=== PATIENT | female | born 1955 | race African-American/Black ===

== ENCOUNTER 2017-01-25 05:34 | Emergency (ER) | payer MEDICARE, OTHER ==
[~2017-01-25] VITALS: Ht 160 cm; Wt 86.8 kg
[~2017-01-25 05:34] MED LIST: CHL25 PO
[2017-01-25] MEDS ORDERED: SIMV-260 PO (06:01)
[2017-01-25 06:28] VITALS: BP 124/80
== END 2017-01-25 07:09 | disposition home or self-care (01) ==
LOC: EMS 05:35
DX: M25.511 Pain in right shoulder (principal); M25.512 Pain in left shoulder; M54.2 Cervicalgia; G89.29 Other chronic pain; I10 Essential (primary) hypertension; Z91.011 Allergy to milk products
CPT/HCPCS: 99283

== ENCOUNTER 2018-04-28 05:23 | Emergency (ER) | payer OTHER ==
[~2018-04-28] VITALS: Ht 160 cm; Wt 87.3 kg
[~2018-04-28 05:23] MED LIST changes: +SIMV-260 PO
[2018-04-28] MEDS ORDERED: OMEP20 PO (05:39)
[2018-04-28] MEDS ORDERED: SIMV-261 PO (05:39)
[2018-04-28] MEDS ORDERED: ERGO500014 PO (05:39)
[2018-04-28 06:11] VITALS: BP 142/91
== END 2018-04-28 07:15 | disposition home or self-care (01) ==
LOC: EMS 05:24
DX: J40 Bronchitis, not specified as acute or chronic (principal); I10 Essential (primary) hypertension; K21.9 Gastro-esophageal reflux disease without esophagitis; J02.9 Acute pharyngitis, unspecified; G89.29 Other chronic pain; Z91.011 Allergy to milk products
CPT/HCPCS: 99283

== ENCOUNTER 2025-08-04 19:42 | Inpatient (IN) | payer OTHER, MEDICARE ==
[~2025-08-04] VITALS: Ht 160 cm; Wt 56.4 kg
[~2025-08-04 19:42] MED LIST changes: +ERGO500014 PO; +OMEP-148 PO; -SIMV-260 PO; +SIMV-261 PO
[2025-08-04 19:43] VITALS: PULSE 160; RESP 20; O2SAT 100
[2025-08-04] MEDS ORDERED: OMEP40CA21 PO (19:52)
[2025-08-04] MEDS ORDERED: LOSA100T59 PO (19:52)
[2025-08-04] MEDS ORDERED: MAGN400T25 PO (19:52)
[2025-08-04] MEDS ORDERED: NPH,100V SQ (19:52)
[2025-08-04] MEDS ORDERED: HYDR25TA2 PO (19:52)
[2025-08-04] MEDS ORDERED: 0.9% SODIUM CHLORIDE 10 ML SYRINGE IVP PRN (20:00)
[2025-08-04 20:06] LABS: PLATELET COUNT (AUTO) 194 K/uL (150-450); RED BLOOD CELL COUNT(AUTO) 3.09 MIL/uL (4.00-5.20); RED CELL DISTRIBUTION WIDTH 20.8 % (11.5-14.5); WHITE BLOOD COUNT (AUTO) 4.2 K/uL (4.5-11.0)
[2025-08-04 20:09] LABS: CALCIUM, TOTAL 9.4 mg/dL (8.8-10.5); CREATININE 1.77 mg/dL (0.60-1.30); GLOMERULAR FILTR. RATE CALC 35 mL/min (>60); SODIUM SERUM 146 mmol/L (136-145); UREA NITROGEN, BLOOD 30 mg/dL (7-18)
[2025-08-04 20:20] LABS: CREATINE KINASE, TOTAL ONLY 183 U/L (26-192); TOTAL PROTEIN, SERUM 5.3 g/dL (6.4-8.2); TROPONIN I-HIGH SENSITIVITY 18 ng/L (<51)
[2025-08-04 20:21] LABS: ASPARTATE AMINOTRANSFERASE 1519 U/L (15-37)
[2025-08-04 20:23] LABS: ABG BASE EXCESS -29.8 mmol/L (-2.0-3.0); ABG CARBOXYHEMOGLOBIN 1.1 % (0.5-1.5); ABG HCO3 4.0 mmol/L (21.0-28.0); ABG METHEMOGLOBIN 1.8 % (0.0-1.5); ABG OXYGEN CONTENT 11.0 mL/dL (15.0-23.0); ABG OXYGEN SATURATION 99.7 % (94.0-98.0); ABG OXYHEMOGLOBIN 96.8 % (94.0-98.0); ABG PCO2 40 mmHg (32.0-45.0); ABG TOTAL HEMOGLOBIN 7.3 G/dL (12.0-16.0); FRACTIONATED INSPIRED OXYGEN 100.0 % (21-100.0); SOURCE, BLOOD GAS ARTERIAL; TEMPERATURE, FAHRENHEIT, BG 98.6 FAHREN (96.0-98.6)
[2025-08-04] MEDS: SODIUM CHLORIDE 0.9% 1,800 ML IV ONE (20:23)
[2025-08-04 20:24] LABS: ABG PH 6.751 (7.350-7.450); ALLEN TEST, BLOOD GAS A LINE; FLOW, BLOOD GAS 0.00 L/min (0.00-15.00); O2 DEVICE,BLOOD GAS VENTILATOR (ROOM AIR); PEEP,BG 5 cm H2O; PO2, ARTERIAL BG 390.9 mmHg (83.0-108.0); SET RATE, BG 20.0 min.; SITE, BLOOD GAS ARTERIAL LINE; VT, ABG 375 ml
[2025-08-04 20:27] LABS: GLUCOSE,RANDOM 488 mg/dL (70-110)
[2025-08-04] MEDS ORDERED: NOREPINEPHRINE 8 MG/0.9 % NACL 250 ML IV PRN (20:30)
[2025-08-04 20:41] LABS: APPEARANCE,URINE CLEAR (CLEAR); GLUCOSE, URINE (UA) >=1000 mg/dL (NEGATIVE); LEUKOCYTE ESTERASE ,URINE NEGATIVE (NEGATIVE); NITRATE,URINE NEGATIVE (NEGATIVE); OCCULT BLOOD,URINE NEGATIVE (NEGATIVE); SPECIFIC GRAVITIY, URINE 1.014 (1.003-1.030)
[2025-08-04] MEDS: CefTRIAXone 1 GM/DEXTROSE 50 ML IV ONE (20:41)
[2025-08-04 20:45] LABS: BAND NEUTROPHILS % (MANUAL) 0 % (0-5)
[2025-08-04 20:48] LABS: LYMPHOCYTES % (MANUAL) 32 % (22-44); MONOCYTES % (MANUAL) 5 % (2-9); SEGMENTED NEUTROPHILS % 63 % (40-70)
[2025-08-04 20:50] LABS: LACTIC ACID 15.9 mmol/L (0.4-2.0)
[2025-08-04 20:51] LABS: RBC MORPHOLOGY COMMENT ABNORMAL R
[2025-08-04 21:12] LABS: HYALINE CASTS, URINE 0-2 /LPF (None Seen); SQUAMOUS EPITHELIAL CELL,UR Few /LPF (None Seen)
[2025-08-04] MEDS: DOPamine 400MG/D5W[STANDARD] 250 ML IV PRN (21:19)
[2025-08-04] MEDS: NOREPINEPHRINE 8 MG/0.9 % NACL 250 ML IV PRN (21:20)
[2025-08-04] MEDS: SODIUM BICARBONATE 150 MEQ in DEXTROSE 5%-WATER 1,000 ML IV SCH (21:25)
[2025-08-04 22:07] LABS: ABG BASE EXCESS -26.1 mmol/L (-2.0-3.0); ABG CARBOXYHEMOGLOBIN 1.4 % (0.5-1.5); ABG HCO3 6.4 mmol/L (21.0-28.0); ABG METHEMOGLOBIN 1.3 % (0.0-1.5); ABG OXYGEN CONTENT 10.8 mL/dL (15.0-23.0); ABG OXYGEN SATURATION 86.9 % (94.0-98.0); ABG OXYHEMOGLOBIN 84.6 % (94.0-98.0); ABG PCO2 26 mmHg (32.0-45.0); ABG PH 6.964 (7.350-7.450); ABG TOTAL HEMOGLOBIN 9.0 G/dL (12.0-16.0); ALLEN TEST, BLOOD GAS A LINE; FLOW, BLOOD GAS 0.00 L/min (0.00-15.00); FRACTIONATED INSPIRED OXYGEN 40.0 % (21-100.0); O2 DEVICE,BLOOD GAS VENTILATOR (ROOM AIR); PEEP,BG 5 cm H2O; PO2, ARTERIAL BG 83.1 mmHg (83.0-108.0); SET RATE, BG 20.0 min.; SITE, BLOOD GAS ARTERIAL LINE; SOURCE, BLOOD GAS ARTERIAL; TEMPERATURE, FAHRENHEIT, BG 98.6 FAHREN (96.0-98.6); VT, ABG 370 ml
[2025-08-04] MEDS: HEPARIN SODIUM,PORCINE 5,000 UNITS/ML VIAL IVP ONE (22:12)
[2025-08-04 22:15] VITALS: PULSE 174; RESP 23; O2SAT 94
[2025-08-04 23:06] LABS: GLUCOMETER DEV NAME(LOC) ER.7; GLUCOSE,POINT OF CARE 397 MG/DL (70-110)
[2025-08-04] MEDS: INSULIN REGULAR, HUMAN 100 UNITS/ML SQ ONE (23:07)
[2025-08-04] MEDS: SODIUM CHLORIDE 0.9% 1,000 ML IV ONE (23:07)
[2025-08-05] MEDS ORDERED: EPINEPHrine 1:10,000 [1 MG/10 ML] SYRINGE ONE ×2
[2025-08-05] MEDS ORDERED: AMIODARONE HCL 50 MG/ML 3 ML VIAL ONE
[2025-08-05] MEDS ORDERED: ATROPINE SULFATE 0.1 MG/ML 10 ML SYRINGE IVP ONE
[2025-08-05] MEDS ORDERED: 0.9% SODIUM CHLORIDE 10 ML SYRINGE IVP ONE ×2
[2025-08-05] MEDS ORDERED: SODIUM BICARBONATE [ADULT] 8.4% 50 MEQ/50 ML SYRINGE IVP ONE ×2
[2025-08-05] MEDS: PHENYLEPHRINE 200 MG/D5%-WATER 250 ML IV PRN (00:04)
[2025-08-05] MEDS: PANTOPRAZOLE SODIUM 80 MG in SODIUM CHLORIDE 0.9% 100 ML IV SCH (00:35)
[2025-08-05] MEDS: VASOPRESSIN 40 UNITS in DEXTROSE 5%-WATER 98 ML IV PRN (00:52)
[2025-08-05 01:15] VITALS: O2SAT 98
[2025-08-05 01:45] VITALS: PULSE 156; RESP 27; O2SAT 94
[2025-08-05] MEDS ORDERED: POTASSIUM CHLORIDE 15 MEQ in NXSTAGE RFP-402 K0/CA3 5,000 ML IRRIG PRN (02:00)
[2025-08-05] MEDS ORDERED: PIPERACILLIN/TAZO 3.375 GM/D5W 50 ML IV SCH (02:30)
[2025-08-05] MEDS ORDERED: SODIUM CHLORIDE 0.9% 250 ML IV ONE (03:02)
[2025-08-05] MEDS: PIPERACILLIN SODIUM/TAZOBACTAM 2.25 GM in DEXTROSE 5%-WATER 50 ML IV SCH (03:07)
[2025-08-05] MEDS: EPINEPHrine 10 MG in DEXTROSE 5%-WATER 240 ML IV PRN (03:11)
[2025-08-05 03:20] VITALS: BP 80/42; PULSE 142; RESP 20
[2025-08-05 03:21] LABS: PLATELET COUNT (AUTO) 181 K/uL (150-450); RED BLOOD CELL COUNT(AUTO) 2.95 MIL/uL (4.00-5.20); RED CELL DISTRIBUTION WIDTH 20.8 % (11.5-14.5); WHITE BLOOD COUNT (AUTO) 3.1 K/uL (4.5-11.0)
[2025-08-05 03:40] VITALS: PULSE 174; RESP 29; O2SAT 91
[2025-08-05 03:41] LABS: CALCIUM, TOTAL 7.5 mg/dL (8.8-10.5); CREATININE 1.81 mg/dL (0.60-1.30); GLOMERULAR FILTR. RATE CALC 34.0 mL/min (>60); PHOSPHORUS 7.5 mg/dL (2.5-4.9); SODIUM SERUM 148.0 mmol/L (136-145); TOTAL PROTEIN, SERUM 3.9 g/dL (6.4-8.2); UREA NITROGEN, BLOOD 29.0 mg/dL (7-18)
[2025-08-05 03:50] LABS: GLUCOSE,RANDOM 525.0 mg/dL (70-110)
[2025-08-05 03:51] LABS: TROPONIN I-HIGH SENSITIVITY 97 ng/L (<51)
[2025-08-05 04:00] VITALS: BP 70/34; PULSE 141; RESP 16; RESP 25; TEMP 82
[2025-08-05 04:13] LABS: BAND NEUTROPHILS % (MANUAL) 1 % (0-5); EOSINOPHILS % (MANUAL) 1 % (1-6); LYMPHOCYTES % (MANUAL) 36 % (22-44); MONOCYTES % (MANUAL) 2 % (2-9); SEGMENTED NEUTROPHILS % 60 % (40-70)
[2025-08-05 04:30] LABS: ASPARTATE AMINOTRANSFERASE 3237.0 U/L (15-37)
[2025-08-05] MEDS ORDERED: HEPARIN SODIUM,PORCINE 1,000 UNITS/ML VIAL IVCATH PRN ×2 (04:30)
== END 2025-08-05 11:00 | DRG 871 ==
LOC: EMS 19:42 → EDH 22:54 → ICU 08-05 01:45
PROVIDERS: ADMIT Hospitalist; ATTEND Hospitalist
PROC: 5A1935Z Respiratory Ventilation, Less than 24 Consecutive Hours (ICD-10-PCS; principal; 2025-08-04)
PROC: 04HY32Z Insertion of Monitoring Device into Lower Artery, Percutaneous Approach (ICD-10-PCS; 2025-08-04)
PROC: 5A12012 Performance of Cardiac Output, Single, Manual (ICD-10-PCS; 2025-08-04)
PROC: 06HY33Z Insertion of Infusion Device into Lower Vein, Percutaneous Approach (ICD-10-PCS; 2025-08-04)
PROC: B54CZZA Ultrasonography of Left Lower Extremity Veins, Guidance (ICD-10-PCS; 2025-08-04)
PROC: 5A12012 Performance of Cardiac Output, Single, Manual (ICD-10-PCS; 2025-08-05)
DX: A41.9 Sepsis, unspecified organism (principal); E11.10 Type 2 diabetes mellitus with ketoacidosis without coma; K72.00 Acute and subacute hepatic failure without coma; J69.0 Pneumonitis due to inhalation of food and vomit; E43 Unspecified severe protein-calorie malnutrition; R65.21 Severe sepsis with septic shock; K92.2 Gastrointestinal hemorrhage, unspecified; G93.1 Anoxic brain damage, not elsewhere classified; N17.9 Acute kidney failure, unspecified; E87.0 Hyperosmolality and hypernatremia; I46.9 Cardiac arrest, cause unspecified; E87.5 Hyperkalemia; G89.29 Other chronic pain; M54.9 Dorsalgia, unspecified; K21.9 Gastro-esophageal reflux disease without esophagitis; D64.9 Anemia, unspecified; I10 Essential (primary) hypertension; Z92.21 Personal history of antineoplastic chemotherapy; Z85.07 Personal history of malignant neoplasm of pancreas; Z90.710 Acquired absence of both cervix and uterus; Z68.22 Body mass index [BMI] 22.0-22.9, adult; Z79.899 Other long term (current) drug therapy
CPT/HCPCS: 36556; 51702; 71045; 80048; 80053; 80076; 81001; 82140; 82550; 82805; 82962; 83605; 83690; 83735; 83880; 84100; 84145; 84484; 85025; 85610; 85730; 87040; 87077; 87081; 87205; 90947; 92950; 93005; 94002; 96361; 96365; 96367; 96372; 96375; 99291; J0169; J0282; J0461; J0696; J1265; J1644; J1815; J2370; J2470; J2543; J3480; J3490; J7050; J7060; 36415-L1; 36415-TC